=== PATIENT | male | born 1995 | race Two or more races ===

== ENCOUNTER 2019-05-06 19:12 | Emergency (ER) | payer OTHER ==
[~2019-05-06] VITALS: Ht 165.1 cm; Wt 88.6 kg
[2019-05-06 19:24] VITALS: Ht 165.1 cm; Wt 88.6 kg
[2019-05-06 20:20] LABS: BASOPHIL % 0 % (0-2); PLATELET COUNT 241 x10^3mcL (130-400); RED CELL DISTRIBUTION WIDTH 12.8 % (11.5-14.5)
[2019-05-06 20:31] LABS: CALCIUM 8.7 mg/dL (8.5-10.1); CARBON DIOXIDE 30.1 mmol/L (21-32); CHLORIDE SERUM 103 mmol/L (98-107); CREATININE SERUM 1.2 mg/dL (0.7-1.3); GFR1 > 60 mL/min; GLUCOSE SERUM 106 mg/dL (74-106); POTASSIUM SERUM 4.1 mmol/L (3.5-5.1); SODIUM SERUM 141 mmol/L (136-145)
[2019-05-06 20:35] LABS: ALKALINE PHOSPHATASE 78 U/L (46-116); ALT/SGPT 53 U/L (16-63); AMYLASE 28 U/L (25-115); AST/SGOT 24 U/L (15-37); BILIRUBIN TOTAL 1.5 mg/dL (0.20-1.00); LIPASE 46 IU/L (73-393); MAGNESIUM 1.6 mg/dL (1.8-2.4); TOTAL PROTEIN, SERUM 8.1 g/dL (6.4-8.2)
[2019-05-06 23:24] VITALS: BP 117/76
== END 2019-05-06 23:20 | disposition home or self-care (01) ==
LOC: ED 19:12
PROVIDERS: Emergency Medicine
DX: A08.4 Viral intestinal infection, unspecified (principal)
CPT/HCPCS: 87491; 87591; C9113; J1885; J2405